=== PATIENT | female | born 1985 | race Caucasian/White ===

== ENCOUNTER 2024-02-22 11:41 | Inpatient (IN) | payer SELFPAY ==
[2024-02-22] VITALS (12 sets, daily range): BP systolic 91–121; BP diastolic 53–73; PULSE 58–77; RESP 15–16; TEMP 36.6–36.7; O2SAT 98; BMI 26.6
--- NOTE | 2024-02-22 11:45 | PM.OBGYHP ---
Providers/Chief Complaint Admitting Physician: Denis Ma MD Primary RUN BOAT OPERATOR: none Primary Care Provider: none HPI RUN BOAT OPERATOR History of Present Illness Nithya Frank is a 39 year old female patient had care with a ring attacher never had ultrasound during this states her EDC is February 29, 2024 presents to L&D c/o painful uterine contractions denies any complications during this did not have labs or 1-h glucola done h/o x three Present Details : 4 Para: 3 Labs Rubella: Immune RPR: Negative GBS: Unknown Medications/Allergies Home Medications Medication Instructions Recorded Confirmed Last Taken Type acetaminophen 325 mg tablet 650 mg PO Q4H PRN Pain 02/22/24 02/22/24 Unknown History (Tylenol) vits no.124-ferrous fum 1 tab PO DAILY 02/22/24 02/22/24 Unknown History 27 mg iron-folic acid 800 mcg tablet ( Vitamin) Allergies Allergy/AdvReac Type Severity Reaction Status Date / Time Sulfa (Sulfonamide Allergy ALGY-Rash Verified 02/22/24 14:06 Antibiotics) Vitals/I&O/Wt Last Vital Signs Temp 97.7 F 02/24/24 16:27 Pulse 89 02/24/24 16:27 Resp 16 02/24/24 16:27 BP 118/70 02/24/24 16:27 Pulse Ox 98 02/24/24 04:30 O2 Del Method Room Air 02/24/24 16:17 02/24/24 02/24/24 02/24/24 06:59 14:59 22:59 Intake Total 800 / 800 Balance 800 / 800 Physical Exam Narrative: VS normal patient in pain due to uterine contractions cervix: 8 cm / 0 station External monitor: heart tracing good variability, + accelerations Data 02/23/24 00:55 Results Labs OB ([facility]): Blood Type O Positive 02/22/24 Antibody Screen Negative 02/22/24 Hct 35.4 % (36-47) L 02/23/24 Hgb 11.80 g/dL (11.27-16.99) 02/23/24 Rho(D) Type Rh positive 02/22/24 Plt Count 158 10^3/cmm (157-399) 02/23/24 Hep Bs Antigen Non-reactive (Nonreactive) 02/22/24 Rubella IgG Antibody 1.5 IU/mL (0.0-10.0) 02/22/24 RPR Nonreactive (Nonreactive) 02/22/24 HIV 1&2 Ab & HIV 1 Ag Non-reactive (Non-Reactiv) 02/22/24 C.trachomatis RNA (TMA) Not detected (NOT DETECTED) 02/22/24 N.gonorrhoeae RNA (TMA) Not detected (NOT DETECTED) 02/22/24 Chlamydia/GC Comment See note 02/22/24 Urine Opiates Screen Positive ng/mL (Negative) H 02/22/24 Ur Barbiturates Screen Negative ng/mL (Negative) 02/22/24 Ur Phencyclidine Scrn Negative ng/mL (Negative) 02/22/24 Ur Amphetamines Screen Negative ng/mL (Negative) 02/22/24 U Benzodiazepines Scrn Negative ng/mL (Negative) 02/22/24 Urine Cocaine Screen Negative ng/mL (Negative) 02/22/24 U Marijuana (THC) Screen Negative ng/mL (Negative) 02/22/24 A&P Assessment and plan (1) Active labor: no care unknown gestational age presented in advanced cervical dilatation, active labor anticipate vaginal delivery (2) No care in current : Attestations Medical Necessity Statement*: patient presented to L&D with active labor Coding Level of Care Code Acute Code for Chg Fwd Diagnoses Active labor No care in current O09.30 Time Spent (min) 60
[2024-02-22] MEDS: oxytocin 30 UNIT/500 ML BAG 600 UNIT IV (12:04)
--- NOTE | 2024-02-22 12:10 | P.PN_ITS ---
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 Subjective: Interval history: DELIVERY NOTE patient with no care states she had no problems with this , was seeing a carton forming machine helper presented to L&D c/o painful uterine contractions no bleeding or fluid leakage On arrival, cervix was 7 cm / -2 station heart tracing good variability, + accelerations patient progressed to complete / +2 station , vigorous male infant cord gases and blood obtained normal placenta and cord no episiotomy / lacerations EBL: 300 cc no complications Labor: Station: +1 Amniotic Membrane Status: Ruptured Monitor Mode: Palpation Contraction Pattern: Regular Status: Category II Vitals/I&O/Wt Last Vital Signs Pulse 68 02/22/24 15:59 Resp 16 02/22/24 12:35 BP 116/59 02/22/24 15:59 O2 Del Method Room Air 02/22/24 13:47 02/22/24 02/22/24 02/22/24 06:59 14:59 22:59 Intake Total 500 / 500 Balance 500 / 500 Weight last 48 hrs Weight 155 lb Data 02/22/24 11:46 A&P Assessment and plan (1) Vaginal delivery: (2) No care in current : Attestations 2 Medical Necessity Statement*: patient presented with active labor, cervix at 7 cm Coding Level of Care Code Acute Code for Chg Fwd Diagnoses Vaginal delivery O80 No care in current O09.30 Time Spent (min) 60
--- NOTE | 2024-02-22 12:15 | PM.DELIVERY ---
Delivery Note: Date of delivery: February 22, 2024 Pre-delivery diagnoses: no care active labor fetus reassuring Post-delivery diagnoses: no care active labor fetus reassuring vaginal delivery Procedure: vaginal delivery Op report anesthesia: None Delivering Physician: Denis Ma MD Estimated blood loss (mL): 300 Findings: patient with no care states she had no problems with this , was seeing a coding machine operator presented to L&D c/o painful uterine contractions no bleeding or fluid leakage On arrival, cervix was 7 cm / -2 station heart tracing good variability, + accelerations patient progressed to complete / +2 station , vigorous male infant cord gases and blood obtained normal placenta and cord no episiotomy / lacerations EBL: 300 cc no complications Pre-Delivery Course: presented to L&D with cervix at 7 cm progressed rapidly to complete cervical dilatation Delivery: vaginal Post-Delivery Status: good A&P Assessment and plan (1) Vaginal delivery: (2) No care in current : Coding Level of Care Code Acute Code for Chg Fwd Diagnoses Vaginal delivery O80 No care in current O09.30 Time Spent (min) 60
[2024-02-22 12:28] LABS: HIV 1 & 2 Antigen Non-Reactive (Non-Reactiv)
[2024-02-22 12:29] LABS: HIV 1 & 2 Antibody Non-Reactive (Non-Reactiv); Hepatitis B Surface Antigen Non-Reactive (Nonreactive); Rubella IgG 1.5 IU/mL (0.0-10.0)
[2024-02-22 12:34] LABS: Rapid Plasma Reagin Syphilis Nonreactive (Nonreactive)
[2024-02-22 13:20] LABS: Amphetamines Screen Urine Negative (Negative); Barbiturates Screen Urine Negative (Negative); Benzodiazepines Screen Urine Negative (Negative); Cocaine Screen Urine Negative (Negative); Opiate Screen Urine Positive (Negative); PCP Screen Urine Negative (Negative); THC Screen Urine Negative (Negative)
[2024-02-22] MEDS: calcium carbonate 500 mg Chew Tablet 1000 MG PO (14:14)
[2024-02-22] MEDS: ibuprofen 800 mg tablet PO ×2 (14:14→20:09)
[2024-02-22 14:15] LABS: Basophils # 0.1 10^3/uL (0.0-0.1); Basophils % 0.3 %; Lymphocytes # 1.3 10^3/uL (0.8-4.8); Lymphocytes % 5.4 %; Mean Corpuscular HGB Conc 32.8 g/dL (30-55); Mean Corpuscular Hemoglobin 30.1 pg (27-33); Mean Corpuscular Volume 91.9 fl (85-98); Mean Platelet Volume 13.3 fL (7.4-10.4); Monocytes # 0.6 10^3/uL (0.2-0.9); Monocytes % 2.4 %; Neutrophils # 21.98 10^3/uL (1.8-7.7); Neutrophils % 90.8 %; Nucleated Red Blood Cells % 0 %; Platelet Count 198 10^3/cmm (157-399); Red Blood Count 4.68 10^6/uL (3.85-5.65); Red Cell Distribution Width 12.7 % (12.1-15.1)
[2024-02-22 14:32] LABS: Slide Review Slide Review Perform
--- NOTE | 2024-02-22 14:59 | PC.NURSE ---
Discussed urine drug screen being positive for opiates with pt. Again asked if she was taking any medications, over the counter or prescribed. Pt states only vitamins and tylenol. Pt then states that her meat cutter had prescribed her something to take the edge off, but she is unable to report the name of any medication, or when she had taken any medications. Mom informed baby will have urine and meconium drug testing. Mother encouraged again to obtain records from her meat cutter as soon as possible, understanding voiced.
--- NOTE | 2024-02-22 15:04 | PC.NURSE ---
Delivery Summary Pt arrived to L&D via ambulance at 1130, c/o contractions and urge to push. Pt taken immediately to OB-3. SVE 7-8cm/80%/-2. 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 Dr Ma notified at 1132 of situation and asked to come for delivery. Registration did not get pt into system until 1141. Dr Ma at bedside at 1145. Complete at 1151 and pushing initiated. at 1201. Placenta at 1204. After delivery mother questioned about testing and care, she states she had been seeing a multi township assessor, Madelyn Valencia but she was too far away to make it here for delivery so they decided to come to the hospital. Pt states she has a binder of her records at home, asked to bring said records to the floor. Pt denies having glucose testing or GBS testing. Pt denies any past medical or surgical history, or medication use other than vitamins and occasional tylenol.
--- NOTE | 2024-02-22 16:12 | PC.NURSE ---
pt ambulated to OB9 for post stay. oriented to room/call light. proud parent pack and feeding log discussed. fresh ice water provided.
[2024-02-22] MEDS: docusate sodium 100 mg Capsule PO (20:09)
[2024-02-23 01:05] LABS: Hematocrit 35.4 % (36-47); Mean Corpuscular HGB Conc 33.3 g/dL (30-55); Mean Corpuscular Hemoglobin 30.4 pg (27-33); Mean Corpuscular Volume 91.2 fl (85-98); Mean Platelet Volume 11.9 fL (7.4-10.4); Platelet Count 158 10^3/cmm (157-399); Red Blood Count 3.88 10^6/uL (3.85-5.65); Red Cell Distribution Width 12.6 % (12.1-15.1); White Blood Count 20.62 10^3/uL (3.29-11.43)
[2024-02-23 02:05] VITALS: BP 104/68; PULSE 72; RESP 16; TEMP 36.9; O2SAT 97
[2024-02-23 06:00] VITALS: BP 105/67; PULSE 68; RESP 16; TEMP 36.8; O2SAT 97
[2024-02-23 10:50] VITALS: BP 108/71; PULSE 70; RESP 17; TEMP 36.9; O2SAT 98
[2024-02-23] MEDS: ibuprofen 800 mg tablet PO ×2 (11:00→18:45)
[2024-02-23] MEDS: PRENATAL VIT NO.130/IRON/FOLIC 1 EACH TABLET PO (11:00)
[2024-02-23] MEDS: docusate sodium 100 mg Capsule PO ×2 (11:00→18:45)
--- NOTE | 2024-02-23 13:05 | P.PN_ITS ---
BUGGY MAN Subjective 2 Subjective: Interval history: no c/o no headaches, dizziness, nausea, abdominal pain, bleeding normal lochia eating, voiding, ambulating well Exam: afebrile, VS normal comfortable, awake, alert Abd: soft, nontender. fundus firm Ext: no edema; nontender A/P: PPD #1 doing well normal course Labor: Station: +1 Amniotic Membrane Status: Ruptured Monitor Mode: Palpation Contraction Pattern: Regular Status: Category II Vitals/I&O/Wt Last Vital Signs Temp 97.6 F 02/23/24 20:48 Pulse 96 02/23/24 20:48 Resp 16 02/23/24 20:48 BP 127/78 02/23/24 20:48 Pulse Ox 99 02/23/24 20:48 O2 Del Method Room Air 02/23/24 20:48 Weight last 48 hrs Weight 155 lb Data 02/23/24 00:55 A&P Assessment and plan (1) Vaginal delivery: Attestations 2 Medical Necessity Statement*: patient s/p vaginal delivery, for care Coding Level of Care Code Acute Code for Chg Fwd Diagnoses Vaginal delivery O80 Time Spent (min) 20
[2024-02-23 13:35] LABS: Chlamydia Trachomatis RNA TMA NOT DETECTED (NOT DETECTED); Neisseria Gonorrhoeae RNA, TMA NOT DETECTED (NOT DETECTED)
[2024-02-23 16:00] VITALS: BP 128/71; PULSE 86; RESP 18; TEMP 36.3; O2SAT 98
[2024-02-23 20:48] VITALS: BP 127/78; PULSE 96; RESP 16; TEMP 36.4; O2SAT 99
[2024-02-24] MEDS: ibuprofen 800 mg tablet PO ×3 (00:04→16:13)
[2024-02-24 04:30] VITALS: BP 112/73; PULSE 86; RESP 16; TEMP 36.6; O2SAT 98
[2024-02-24] MEDS: PRENATAL VIT NO.130/IRON/FOLIC 1 EACH TABLET PO (09:12)
[2024-02-24] MEDS: docusate sodium 100 mg Capsule PO (09:12)
[2024-02-24 09:15] VITALS: BP 116/70; PULSE 96; RESP 15; TEMP 36.4
[2024-02-24] MEDS: calcium carbonate 500 mg Chew Tablet 1000 MG PO (09:15)
--- NOTE | 2024-02-24 14:10 | PM.OBGYDC ---
Discharge Providers UNPAID INTERN Date of Admission: 02/22/24 11:41 Date of Discharge: 02/24/24 Attending Provider at Admission: Denis Ma MD Attending Provider at Discharge: Denis Ma MD Consults: none Primary Care Provider: none Diagnoses at Discharge Discharge Diagnosis (1) Active labor: Details from hospital stay: 39 y.o. patient had care with a granulating machine operator never had ultrasound during this states her EDC is February 29, 2024 presents to L&D c/o painful uterine contractions denies any complications during this did not have labs or 1-h glucola done h/o x three On arrival, cervix was 7 cm / -2 station heart tracing good variability, + accelerations patient progressed to complete / +2 station , vigorous male patient did well had no complications She was discharged home on the second day patient was instructed to return for care within the next two weeks either to the [facility] or a provider of her choice. Status: Acute (2) No care in current : Status: Acute Reason for Visit Reason for Visit: Abdominal pain Brief History: 39 y.o. patient had care with a granulating machine operator never had ultrasound during this states her EDC is February 29, 2024 presents to L&D c/o painful uterine contractions denies any complications during this did not have labs or 1-h glucola done h/o x three Hospital Course Hospital Course 39 y.o. patient had care with a granulating machine operator never had ultrasound during this states her EDC is February 29, 2024 presents to L&D c/o painful uterine contractions denies any complications during this did not have labs or 1-h glucola done h/o x three On arrival, cervix was 7 cm / -2 station heart tracing good variability, + accelerations patient progressed to complete / +2 station , vigorous male infant patient did well had no complications She was discharged home on the second day patient was instructed to return for care within the next two weeks either to the [facility] or a provider of her choice. Information Peripartum Data: Infant Delivery Method: Vaginal Laceration description: None Episiotomy description: None complications: none Physical Exam Narrative: afebrile, VS normal comfortable, awake, alert Abd: soft, nontender. fundus firm Ext: no edema; nontender Discharge Data Studies Completed and Pending Laboratory Results WBC 20.62 10^3/uL (3.29-11.43) H 02/23/24 00:55 RBC 3.88 10^6/uL (3.85-5.65) 02/23/24 00:55 Hgb 11.80 g/dL (11.27-16.99) 02/23/24 00:55 Hct 35.4 % (36-47) L 02/23/24 00:55 MCV 91.2 fl (85-98) 02/23/24 00:55 MCH 30.4 pg (27-33) 02/23/24 00:55 MCHC 33.3 g/dL (30-55) 02/23/24 00:55 RDW 12.6 % (12.1-15.1) 02/23/24 00:55 Plt Count 158 10^3/cmm (157-399) 02/23/24 00:55 MPV 11.9 fL (7.4-10.4) H 02/23/24 00:55 Neut % (Auto) 90.8 % 02/22/24 11:46 Lymph % (Auto) 5.4 % 02/22/24 11:46 [place] % (Auto) 2.4 % 02/22/24 11:46 Eos % (Auto) 0.0 % 02/22/24 11:46 Baso % (Auto) 0.3 % 02/22/24 11:46 Neut # (Auto) 21.98 10^3/uL (1.8-7.7) H 02/22/24 11:46 Lymph # (Auto) 1.3 10^3/uL (0.8-4.8) 02/22/24 11:46 [place] # (Auto) 0.6 10^3/uL (0.2-0.9) 02/22/24 11:46 Eos # (Auto) 0.0 10^3/uL (0.0-0.8) 02/22/24 11:46 Baso # (Auto) 0.1 10^3/uL (0.0-0.1) 02/22/24 11:46 Nucleated RBC % (auto) 0 % 02/22/24 11:46 Nucleated RBCs # 0.0 /100WBC 02/22/24 11:46 Urine Opiates Screen Positive ng/mL (Negative) H 02/22/24 12:09 Ur Barbiturates Screen Negative ng/mL (Negative) 02/22/24 12:09 Ur Phencyclidine Scrn Negative ng/mL (Negative) 02/22/24 12:09 Ur Amphetamines Screen Negative ng/mL (Negative) 02/22/24 12:09 U Benzodiazepines Scrn Negative ng/mL (Negative) 02/22/24 12:09 Urine Cocaine Screen Negative ng/mL (Negative) 02/22/24 12:09 U Marijuana (THC) Screen Negative ng/mL (Negative) 02/22/24 12:09 RPR Nonreactive (Nonreactive) 02/22/24 11:46 C.trachomatis RNA (TMA) Not detected (NOT DETECTED) 02/22/24 12:09 Chlamydia/GC Comment See note 02/22/24 12:09 Hep Bs Antigen Non-reactive (Nonreactive) 02/22/24 11:46 HIV 1&2 Ab & HIV 1 Ag Non-reactive (Non-Reactiv) 02/22/24 11:46 HIV 1&2 Antibody Non-reactive (Non-Reactiv) 02/22/24 11:46 N.gonorrhoeae RNA (TMA) Not detected (NOT DETECTED) 02/22/24 12:09 Rubella IgG Antibody 1.5 IU/mL (0.0-10.0) 02/22/24 11:46 Blood Type O Positive 02/22/24 11:46 Rho(D) Type Rh positive 02/22/24 11:46 Antibody Screen Negative 02/22/24 11:46 Procedures Performed vaginal delivery Vitals Last Vital Signs Temp 97.7 F 02/24/24 16:27 Pulse 89 02/24/24 16:27 Resp 16 02/24/24 16:27 BP 118/70 02/24/24 16:27 Pulse Ox 98 02/24/24 04:30 O2 Del Method Room Air 02/24/24 16:17 Results Labs OB ([facility]): Blood Type O Positive 02/22/24 Antibody Screen Negative 02/22/24 Hct 35.4 % (36-47) L 02/23/24 Hgb 11.80 g/dL (11.27-16.99) 02/23/24 Rho(D) Type Rh positive 02/22/24 Plt Count 158 10^3/cmm (157-399) 02/23/24 Hep Bs Antigen Non-reactive (Nonreactive) 02/22/24 Rubella IgG Antibody 1.5 IU/mL (0.0-10.0) 02/22/24 RPR Nonreactive (Nonreactive) 02/22/24 HIV 1&2 Ab & HIV 1 Ag Non-reactive (Non-Reactiv) 02/22/24 C.trachomatis RNA (TMA) Not detected (NOT DETECTED) 02/22/24 N.gonorrhoeae RNA (TMA) Not detected (NOT DETECTED) 02/22/24 Chlamydia/GC Comment See note 02/22/24 Urine Opiates Screen Positive ng/mL (Negative) H 02/22/24 Ur Barbiturates Screen Negative ng/mL (Negative) 02/22/24 Ur Phencyclidine Scrn Negative ng/mL (Negative) 02/22/24 Ur Amphetamines Screen Negative ng/mL (Negative) 02/22/24 U Benzodiazepines Scrn Negative ng/mL (Negative) 02/22/24 Urine Cocaine Screen Negative ng/mL (Negative) 02/22/24 U Marijuana (THC) Screen Negative ng/mL (Negative) 02/22/24 Discharge Plan Discharge Patient Disposition: Home Condition: Stable Prescriptions: Continued Vitamin 27 mg iron- 800 mcg Tablet 1 tab PO DAILY acetaminophen [Tylenol] 325 mg Tablet 650 mg PO Q4H PRN (Reason: Pain) Discharge Orders: Discharge Order (Routine); Ordered 02/24/24 Ordered By: Denis Ma Referrals: Densi Ma MD [Physician] - 03/08/24 2:00 pm Discharge Diet: Usual diet Discharge Activity: Increase activity as tolerated Patient Instructions: Depression (DC), Opioid Safety (DC), Preeclampsia and Eclampsia After Delivery (GEN), Hemorrhage (DC), OB Discharge Report, OB Food/Drug Interaction Guide, Opioid Safety, OB Home Care, OB Vaginal Deliveries - [facility], Abnormal Bleeding Activity Restrictions/Additional Instructions: followup with a health care provider in two weeks Discharge Attestations UNPAID INTERN Time Spent in Discharge Care*: less than 30 min Coding Level of Care Code Acute Code for Chg Fwd Diagnoses Active labor No care in current O09.30 Time Spent (min) 20
[2024-02-24 16:17] VITALS: BP 118/70; PULSE 89; RESP 16; TEMP 36.5
[2024-02-24 16:27] VITALS: BP 118/70; PULSE 89; RESP 16; TEMP 36.5
== END 2024-02-24 16:30 | disposition home or self-care (01) | DRG 807 ==
PROVIDERS: Admitting Provider Obstetrics & Gynecology; Visit Provider Obstetrics & Gynecology
DX: O80 Encounter for full-term uncomplicated delivery (principal); Z37.0 Single live birth; Z3A.39 39 weeks gestation of pregnancy
CPT/HCPCS: 36415; 59409; 80306; 85025; 85027; 86592; 86762; 86850; 86900; 87340; 87491; 87591; 87806; J2590

== ENCOUNTER → 2024-04-12 13:13 | Outpatient (BNVA) | payer MEDICAID, SELFPAY | PROVIDERS: Visit Provider Obstetrics & Gynecology | DX: Z01.419 Encounter for gynecological examination (general) (routine) without abnormal findings (principal) | CPT/HCPCS: 87624 ==

== ENCOUNTER 2024-04-27 08:00 | Outpatient (CLI) | payer MEDICAID, SELFPAY ==
--- NOTE | 2024-04-27 | MM_ITS ---
WS: [id number] Bilateral screening 3D tomosynthesis digital mammogram, 04/27/2024 8:09 AM Clinical Data: ANNUAL SCREENING Comparison: None. Findings: No spiculated masses or clustered calcifications are seen. There are no secondary signs of carcinoma . There is dystrophic calcification in the upper outer aspect of the left breast. MM/MM scr BI tomosynthesis [id number] Impression: Negative bilateral mammogram with no prior exam for review. Recommend annual screening mammograms. BIRADS: 2 - Benign FOLLOW UP: 1 Year Follow-up DENSITY: The breasts are extremely dense, which lowers the sensitivity of mammo graphy. The CAD maturity checker was used
== END 2024-04-27 08:01 | disposition home or self-care (01) ==
PROVIDERS: PCP Family Medicine; Visit Provider Obstetrics & Gynecology
DX: Z12.31 Encounter for screening mammogram for malignant neoplasm of breast (principal); R92.1 Mammographic calcification found on diagnostic imaging of breast
CPT/HCPCS: 77063; 77067

== ENCOUNTER 2024-08-15 05:54 | Day surgery (SDC) | payer MEDICAID, SELFPAY ==
[2024-08-15] VITALS (11 sets, daily range): BP systolic 102–118; BP diastolic 52–77; PULSE 64–96; RESP 13–25; TEMP 36.2–36.9; O2SAT 97–99; BMI 23.9
--- NOTE | 2024-08-15 00:46 | W.PM.OPSFHP ---
Same Day Surgery H&P Indication for Procedure/HPI DATE OF PROCEDURE: August 15, 2024 CHIEF COMPLAINT/INDICATIONFOR SURGICAL PROCEDURE: Desires permanent sterilization PREOP DIAGNOSIS: Desires permanent sterilization PLANNED PROCEDURE: Operation Date: 08/15/24 07:00 Proposed Procedures p Laparoscopic bilateral partial salpingectomy 10945, Z30.2(Bilateral) - Denis Ma MD 39 y.o. A1 Wants permanent sterilization now scheduled for laparoscopic bilateral salpingectomy Medications/Allergies* Home Medications ?Medication ?Instructions ?Recorded ?Confirmed ?Type acetaminophen 325 mg tablet 650 mg PO Q4H PRN Pain 02/22/24 08/14/24 History (Tylenol) vits no.124-ferrous fum 1 tab PO DAILY 02/22/24 08/14/24 History 27 mg iron-folic acid 800 mcg tablet ( Vitamin) buspirone 5 mg tablet 5 mg PO BID 08/14/24 08/14/24 History Allergies/Adverse Reactions Allergy/AdvReac Type Severity Reaction Status Date / Time aspartame Allergy ADR-Abdominal Verified 05/31/24 11:13 Pain Sulfa (Sulfonamide Allergy ALGY-Rash Verified 05/31/24 11:13 Antibiotics) Pertinent History/Comorbid Conditions* Medical History (Updated 05/07/24 @ 13:51 by Denis Ma MD) No care in current Vaginal delivery Social History Smoking and tobacco/nicotine status: current every day tobacco/nicotine user Pertinent Exam Findings alert, oriented x 3, clear to auscultation bilaterally and regular rate & rhythm Pertinent Data Pap 12-4-24 NILM, negative HPV Recommendations Surgery/Procedure today Coding Level of Care Code Acute Code for Chg Fwd
[2024-08-15] MEDS: sodium chloride 0.9% 1,000 ML 30 ML IV (06:30)
--- NOTE | 2024-08-15 06:38 | ANES.PREANE2 ---
Pre-Anesthetic Assessment Height/Weight: Height 5 ft 3 in Weight 135 lb Temp Pulse Resp BP Pulse Ox O2 Del Method 97.1 F L 66 18 110/61 98 Room Air 08/15/24 06:34 08/15/24 06:34 08/15/24 06:34 08/15/24 06:34 08/15/24 06:34 08/15/24 06:34 Preop Diagnosis: desires permanent sterilization Operation Date: 08/15/24 07:00 Proposed Procedures p Laparoscopic bilateral partial salpingectomy 35874, Z30.2(Bilateral) - Denis Ma MD Was Beta Pieter taken within 24 hours: N/A Was Clonidine taken within 24 hours: N/A Last intake: Intake Last Liquid Date 08/14/24 Last Liquid Time 00:00 Last Solid Date 08/14/24 Last Solid Time 19:00 Social No alcohol and No tobacco Quit smoking a few months ago Exam alert, oriented x 3, clear to auscultation bilaterally and regular rate & rhythm Airway Submandibular: within normal limits Cervical ROM: within normal limits Mallampati: Class II Dentition: full Anesthetic Plan ASA status: 2 Anesthesia: General Other: No prior issues with anesthesia NPO since yesterday evening Patient stopped smoking a few months ago, no home inhaler use Denies any cardiac issues Patient states that she struggled with GERD during but has been okay lately Waiting on urine METs greater than 4 Plan for GETA Medications/Allergies Home Medications ?Medication ?Instructions ?Recorded ?Confirmed ?Last Taken ?Type acetaminophen 325 mg tablet 650 mg PO Q4H PRN Pain 02/22/24 08/14/24 05/29/24 History (Tylenol) vits no.124-ferrous fum 1 tab PO DAILY 02/22/24 08/14/24 05/31/24 History 27 mg iron-folic acid 800 mcg tablet ( Vitamin) norethindrone (contraceptive) 0.35 0.35 mg PO DAILY #84 tabs 03/13/24 08/14/24 08/14/24 Rx mg tablet buspirone 5 mg tablet 5 mg PO BID 08/14/24 08/14/24 08/14/24 History Allergies Allergy/AdvReac Type Severity Reaction Status Date / Time aspartame Allergy ADR-Abdominal Verified 05/31/24 11:13 Pain Sulfa (Sulfonamide Allergy ALGY-Rash Verified 05/31/24 11:13 Antibiotics) [facility] Anesthesia Medical History (Updated 05/07/24 @ 13:51 by Denis Ma MD) No care in current Vaginal delivery Social History Smoking and tobacco/nicotine status: current every day tobacco/nicotine user Data Anesthesia Cardiac Studies: No Data to Display
[2024-08-15 06:51] LABS: OR HCG Qualitative Urine Negative (Negative)
--- NOTE | 2024-08-15 06:51 | W.PM.OPSUD ---
Surgery/Procedure H&P Update DATE OF PROCEDURE: August 15, 2024 DATE H&P PERFORMED: 08/15/24 H&P UPDATE INFORMATION: I have reviewed H&P completed within last 30 days, I have examined patient prior to procedure and No changes to prior documentation PREOP DIAGNOSIS: desires permanent sterilization PLANNED PROCEDURE: Operation Date: 08/15/24 07:00 Proposed Procedures p Laparoscopic bilateral partial salpingectomy 26472, Z30.2(Bilateral) - Denis Ma MD
--- NOTE | 2024-08-15 07:50 | P.OP_ITS ---
Operative Report Date of procedure: August 15, 2024 Pre-op diagnosis: desires permanent sterilization Post-op diagnosis: same Post-op findings: normal uterus, tubes, and ovaries Procedure done: laparoscopic bilateral salpingectomy Implants: none Specimens removed/disposition: bilateral fallopian tube segments Surgeon: Denis Ma MD Anesthesia: General Estimated blood loss (mL): 5 Complications: none Findings: normal uterus, tubes, and ovaries Condition: stable Disposition: PACU Brief History: 39 y.o. desires permanent sterilization Procedure: Informed consent was obtained. The patient was taken to the OR and placed on the table. General endotracheal anesthesia was induced. The abdomen was then prepped and draped in the usual fashion. A 5 mm subumbilical skin incision was made. A 5 mm trocar with sheath was then inserted into the peritoneal cavity under direct visualization with the laparoscope. After confirming intraperitoneal position, pneumoperitoneum was achieved. Two separate 5 mm incisions were made in the right and left mid- quadrants. 5 mm trocars with sheaths were then inserted into the peritoneal cavity under direct visualization with the laparoscope. The right fallopian tube was then identified to its fimbrial end. Starting at the fimbrial end, the mesosalpinx was then coagulated and cut using the Ligasure. The right fallopian tube was excised and removed via one of the ports. This was sent to pathology. There was no bleeding seen. Similarly, the left fallopian tube was identified to its fimbrial end. The left fallopian tube was excised and removed, sent to pathology. There was no bleeding. All instruments were then removed from the peritoneal cavity after the pn eumoperitoneum was allowed to escape. The skin incisions were closed using 3-O chromic in subcuticular fashion. Dermabond was applied. The patient was then placed supine and awakened, taken the the PACU in good condition. Postop condition: stable EBL: 5 cc Complications: none Sponge, needles, and instruments counts correct x two
--- NOTE | 2024-08-15 09:00 | ANE.PACU2 ---
Inpatient post-anesthesia follow up: Airway intact: Yes Vital signs: Temperature 98.0 F Pulse Rate 64 Respiratory Rate 17 Blood Pressure 103/52 Pulse Oximetry 97 Oxygen Delivery Me thod Room Air Oxygen Flow Rate Fraction of Inspir ed Oxygen Hydration adequate: Yes Nausea and vomiting: No Pain level: 1 Mental status: Baseline
== END 2024-08-15 09:00 | disposition home or self-care (01) ==
PROVIDERS: PCP Family Medicine; Visit Provider Obstetrics & Gynecology
PROC: (CPT 58661; principal; 2024-08-15 07:00)
DX: Z30.2 Encounter for sterilization (principal); F17.200 Nicotine dependence, unspecified, uncomplicated
CPT/HCPCS: 58661; 81025; 88302; J1100; J2250; J2405; J2704; J3010; J3490; J7030; J9999

== ENCOUNTER 2024-09-06 10:14 | Outpatient (CLI) | payer MEDICAID, SELFPAY ==
--- NOTE | 2024-09-06 10:23 | XR_ITS ---
WS: [id number] Cervical spine, 5 views including both obliques, 09/06/2024 Clinical Data: CHRONIC NECK PAIN FOR GREATER THAN 3 MONTHS Comparison: None. Findings: No compression fractures are seen. The disc heights are normal. There is no prevertebral soft tissue swelling. The obliques show no foraminal encroachment. The odontoid is unremarkable. The soft tissues of the neck and the lung apices are normal. XR/XR cervical spine 4-5V [id number] Impression: Negative cervical spine with negative oblique images.
== END 2024-09-06 10:15 | disposition home or self-care (01) ==
PROVIDERS: PCP Family Medicine; Visit Provider Family Medicine
DX: M54.2 Cervicalgia (principal)
CPT/HCPCS: 72050

== ENCOUNTER 2025-01-31 15:19 | Outpatient (CLI) | payer MEDICAID, SELFPAY ==
--- NOTE | 2025-01-31 15:22 | MR_ITS ---
WS: [id number] MRI CERVICAL SPINE NONCONTRAST HISTORY: NUMBNESS TINGLING, R ARM/CHRONIC NECK PAIN COMPARISON: None available. Technique: Multiplanar, multisequence noncontrast imaging of the cervical spine. Normal cervical alignment with no compression fracture or significant disc space narrowing. Signal within the cervical cord is normal. Visualized posterior fossa is unremarkable. Mild ectopia of the cerebellar tonsils. C2-C3: C3-C4: Normal. C4-C5: Normal. C5-C6: Small central disc protrusion. Mild facet arthritis. C6-C7: Minimal facet arthritis. C7-T1: Normal. Paraspinal soft tissue are normal. MR/MR cervical spin wo con* [id number] IMPRESSION: 1. No high-grade central or foraminal stenosis. 2. Small central disc protrusion at C5-6.
--- NOTE | 2025-01-31 15:34 | MR_ITS ---
WS: [id number] MRI BRAIN WITHOUT CONTRAST HISTORY: MEMORY DEFICIT/CHANGES IN VISION COMPARISON: None available. TECHNIQUE: Diffusion imaging, multiplanar T1, T2 and FLAIR imaging obtained. No evidence for acute infarct or hemorrhage. Hudson-white matter differentiation is normal. No remote or acute infarcts or volume loss. Ventricles and extra-axial spaces are normal. No inferior displacement of cerebellar tonsils. The sella turcica and pituitary gland are unremarkable. Visualization of the orbit and globe is limited without dedicated imaging but the orbits and optic nerves appear symmetric. Dural venous sinuses and [place] demonstrate no abnormality on this unenhanced studies. Paranasal sinuses: Very small amount of fluid in the RIGHT sphenoid sinus. Mastoid air cells: Normal. Calvarium and scalp: Intact. MR/MR head wo con* [id number] IMPRESSION: 1. Unremarkable noncontrast MRI brain. 2. No signal abnormalities noted on the FLAIR sequence in the periventricular distribution to suggest demyelinating disease.
== END 2025-01-31 15:20 | disposition home or self-care (01) ==
LOC: RAD 15:20
PROVIDERS: PCP Family Medicine; Visit Provider Family Medicine
DX: R20.0 Anesthesia of skin (principal); M50.222 Other cervical disc displacement at C5-C6 level; R20.2 Paresthesia of skin; M79.601 Pain in right arm; R41.3 Other amnesia; H53.9 Unspecified visual disturbance; J34.89 Other specified disorders of nose and nasal sinuses; D10.4 Benign neoplasm of tonsil; M47.812 Spondylosis without myelopathy or radiculopathy, cervical region
CPT/HCPCS: 70551; 72141

== ENCOUNTER 2025-02-13 07:42 | Emergency (ER) | payer MEDICAID, SELFPAY ==
--- OUTSIDE RECORDS SUMMARY | 2012-02-26 06:20 | XMS_ITS | Continuity of Care Document ---
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 Name Role Phone Unavailable Unavailable Unavailable Allergies, Adverse Reactions, Alerts Substance Reaction Status Criticality Sulfa (Sulfonamide Antibiotics) Active No Information Medications Medication Instructions Dosage Effective Dates (start - stop) Status Comments Mirena 20 mcg/24 hr Intrauterine Device insert 1 by Intrauterine route 1 - Active Lot # [id number] E x 15 ibuprofen 600 mg Tab take 1 tablet (600MG) by oral route 4 times every day with food 600 MG - Active Plus 27 mg-1 mg Tab take 1 tablet by oral route every day - No Longer Active Procedures Procedure Date URINE TEST Levonorgestrel iu contracept INSERT INTRAUTERINE DEVICE CARE AFTER DELIVERY (Post- Care) O POSTOP FOLLOW-UP VISIT OBSTETRICAL CARE Return OB FLU VACCINE NO PRESERV 3 & > IMMUNIZATION ADMIN Return OB OB US, LIMITED, FETUS(S) Return OB Return OB Return OB CULTURE SCREEN ONLY CULTURE TYPE, NUCLEIC ACID Return OB Return OB Venipuncture - [facility] HEMOGLOBIN GLUCOSE TEST Return OB OB US >/= 14 WKS, SNGL FETUS URINE CULTURE/COLONY COUNT 4NEW - Vaginal Delivery Venipuncture - [facility] OBSTETRIC PANEL HIV-1/HIV-2, SINGLE ASSAY CHYLMD TRACH, DNA, AMP PROBE N.GONORRHOEAE, DNA, AMP PROB CYTOPATH C/V AUTO FLUID REDO Advance Directives Directive Yes / No Effective Date File Name Resuscitation Not Answered N/A N/A Life Support Not Answered N/A N/A Intubation Not Answered N/A N/A Antibiotics Not Answered N/A N/A IV Fluid Support Not Answered N/A N/A Tube Feed Not Answered N/A N/A Other Directive N/A N/A WARNING:The information contained in this section is historical and is provided for information only and does not constitute a legal document or any assurance that the information is still accurate. Please verify the information with the magana of the legal document before using it for clinical purposes. Encounters Encounter Description Practice Location Reason(s) For Visit Diagnoses Date Provider Providers Copied on Encounter [facility], [address], [place], [id number] , [place] tel: [phone] [facility] visit (chief complaint)I UD insertion (chief complaint) examination or test, unconfirmedINSERT ION OF IUDRoutine follow-up 2 No Information [facility], [address], [place], [id number] , [place] tel: [phone] [facility] wants to return to work (chief complaint) No Information 2 No Information [facility], [address], [place], [id number] , [place] tel: [phone] [facility] IP No Information 2 [address]. [address] [facility] [address], [facility] [place], [address], [place]. tel:[phone] Referring Provider: Vivian Reed, [address] [place], [address]. tel:[phone] [facility], [address], [place], [id number] , [place] tel: [phone] [facility] (chief complaint) Influenza Vaccine 2 No Information [facility], [address], [place], [id number] , [place] tel: [phone] [facility] (chief complaint) No Information 2 No Information [facility], [address], [place], [id number] , [place] tel: [phone] [facility] (chief complaint) No Information 2 No Information [facility], [address], [place], [id number] , [place] tel: [phone] [facility] (chief complaint) No Information 2 No Information [facility], [address], [place], [id number] , [place] tel: [phone] [facility] (chief complaint) No Information 2 No Information [facility], [address], [place], [id number] , [place] tel: [phone] [facility] (chief complaint) No Information 2 No Information [facility], [address], [place], [id number] , [place] tel: [phone] [facility] (chief complaint) No Information 2 No Information [facility], [address], [place], [id number] , [place] tel: [phone] [facility] (chief complaint) No Information 2 No Information [facility], [address], [place], [id number] , [place] tel: [phone] [facility] (chief complaint) Gynecological Examination 2 No Information Family History Family Member Type Diagnosis Age At Onset Mother Problem (finding) Obesity Grandparent Problem (finding) osteoporosis Mother Problem (finding) osteoporosis Grandparent Problem (finding) stroke Father Problem (finding) Thyroid disease Grandparent Problem (finding) Diabetes mellitus Mother Problem (finding) stroke Immunizations Vaccine Date Status Comments flu (split) preservative tika e, 3 yrs or older administered Source: New Immuniza tion Record Payers Payer name Insurance type Covered libertarian ID Authoriza tion(s) Medicaid Tay [id number] Social History Type Description Quantity Date Captured Comments Alcohol Use Details Unknown Caffeine Use Details Unknown Tobacco Use Status No Information Smoking Status No Information Sex Female Vital Signs Date / Time: Height Weight BMI Pulse Rate Blood Pressure Temperature Respiratory Rate Body Surface Area Head Circumference Head Circ. Percentile Wt./Dennis. Percentile BMI percentile Pulse Ox Inhaled Ox 11:25 AM 64.00 in 130.00 lbs 22.3 1 kg/m eter (2) 90/52 mm[Hg] Chief Complaint And Reason For Visit From encounter dated '02/26/2012 11:20'. visit (chief complaint) IUD insertion (chief complaint) Reason For Referral Reason For Referral No Information Plan Of Treatment Date Type Action Status Referral Ordered: Hemoglobin Appointment date/timeframe: 12/04/2011 ordered History Of Present Illness Encounter Date Complaint History Of Prese nt Illness No Information Functional Status Date Functional Assessmen t No Information Instructions Date Instruction Additional Infor mation influenza vaccine Early Screen testing discussed cystic fibrosis testing discusse d quad screen testing discussed amniocentesis discussed childbirth classes / hospital fa cilities Welcome Baby book New OB packet seat belt use use of any medicatio ns (including supplements, vitamins, herbs, OTC drugs) illicit / recreational drugs alcohol tobacco (ask, advise, assess, as sist and arrange) travel anticipated course of c are domestic violence screening HIV and other routine t ests environmental / work hazards influenza vaccine indications for ultrasound physical activity / exercise sexual activity toxoplasmosis precautions (cats / raw meat) nutrition and weight gain vasile white, special diet Assessments Type Assessment Date No Information Patient Care Teams Name Effective Dates (start - stop) Status Members No Information
[2025-02-13 07:48] VITALS: BP 129/76; PULSE 90; RESP 16; O2SAT 97; BMI 25.8
--- OUTSIDE RECORDS SUMMARY | 2025-02-13 07:49 | XMS_ITS | Patient Health Record ---
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 Name Role Phone YOJANA GOLDMAN Unavailable [phone] Allergies Allergen (clinical drug ingredient) Drug/Non Drug Allergy documented on EMR Reaction Allergy Type Onset Date Status Substance with sulfonamide structure and antibacterial mechanism of action (substance) Sulfa Antibiotics nausea/vomiting Drug Allergy Active Reason For Referral No Information Medications Medication SIG (Take, Route, Frequency, Duration) Notes Start Date End Date Status Mirena (52 MG) 20 MCG/DAY as directed Intrauterine Unknown Wellbutrin SR 150 MG 1 tablet in the mor brooks Orally Once a day for 30 day(s) Unknown Chantix Unknown BuSpar Unknown Social History Tobacco Use: Social History Observation Description Date Details (start date - stop date) Current Smoker NA - NA Tobacco Status: Question Answer Notes Patient is a current every day smoker Problems No Known Problems Plan Of Treatment No Information Insurance Providers Payer Name Payer Address Payer Phone Subscriber Number Group Number Insured Name Patient Relationship to Insured Coverage Start Date Coverage End Date [place] [address] [address] [place], [place] [id number] AYANAESTHER Self - patient is the insured 2 Medical (General) History Medical History History ICD Code allergies anxiety depression Surgical History Surgery Date(Month/Year)
--- NOTE | 2025-02-13 08:11 | W.ED.NECK ---
HPI - Neck Pain/Injury General: Chief Complaint: Neck Pain/Injury Stated Complaint: bilat shoulder, neck, and back pain Time Seen by Provider: 02/13/25 07:48 History of Present Illness: 40-year-old female who presents emergency room complaining of bilateral neck shoulder and upper back pain. She has been taking a lot of ibuprofen for this. This has been going on for several months that she has been on muscle relaxers prednisone and anti-inflammatories has been seen by her primary care doctor had an MRI of her head and of her neck. She states so far nothing has seemed to help it very much. Patient claims progressively worsening pain no history of any trauma to the neck. She reports she was told the MRI of the head and neck were done here and were negative. She previously had an injury several years ago to a shoulder that turned out to be more like a tendinitis it was treated conservatively and resolved she never required any surgery. Related Data Home Medications ?Medication ?Instructions ?Recorded ?Confirmed acetaminophen 325 mg tablet 650 mg PO Q4H PRN Pain 02/22/24 01/02/25 (Tylenol) vits no.124-ferrous fum 1 tab PO DAILY 02/22/24 01/02/25 27 mg iron-folic acid 800 mcg tablet ( Vitamin) buspirone 5 mg tablet 5 mg PO BID 08/14/24 01/02/25 Previous Rx's ?Medication ?Instructions ?Recorded tramadol 50 mg tablet 50 mg PO BID PRN pain #14 tabs 08/15/24 diclofenac sodium 3 % topical gel 1 applic topical BID PRN pain #100 01/02/25 (Solaraze) grams methocarbamol 500 mg tablet 500 mg PO TID 10 days #30 tabs 01/02/25 prednisone 20 mg tablet 60 mg (3 x 20 mg) PO DAILY 5 days 01/02/25 #15 tabs prednisone 20 mg tablet 20 mg PO TID #15 tabs 02/13/25 pregabalin 75 mg capsule (Lyrica) 75 mg PO BID #60 caps 02/13/25 Allergies Allergy/AdvReac Type Severity Reaction Status Date / Time aspartame Allergy ADR-Abdominal Verified 08/24/24 07:41 Pain Sulfa (Sulfonamide Allergy ALGY-Rash Verified 08/24/24 07:41 Antibiotics) Review of Systems Const: Denies: fever(s) or chills Card: Denies: chest pain Resp: Denies: dyspnea GI: Denies: abdominal pain : Denies: dysuria, urinary frequency or urinary urgency Musc: Denies: neck pain or back pain Skin/Breast: Denies: rash PFSH ED PFSH: Medical History No pertinent past medical history No care in current Vaginal delivery Surgical History H/O tubal ligation Social History Smoking and tobacco/nicotine status: never used tobacco/nicotine Physical Exam Const: COMMON NORMALS: no acute distress GENERAL APPEARANCE: cooperative and comfortable ORIENTATION/CONSCIOUSNESS: Yes awake, Yes oriented to person, Yes oriented to place and Yes oriented to time HENMT: COMMON NORMALS: normocephalic, atraumatic and hearing grossly normal bilaterally HEAD & SCALP: normocephalic and atraumatic Resp: COMMON NORMALS: normal respiratory effort, No retractions, No use of accessory muscles and clear to auscultation bilaterally AUSCULTATION: clear to auscultation bilaterally Cardio: COMMON NORMALS: regular rate, regular rhythm and No murmurs present (Cardio) RATE: regular rate RHYTHM: regular rhythm Extremity: COMMON NORMALS: normal to inspection, capillary refill normal, no clubbing, cyanosis or edema, no calf tenderness and no pedal edema OTHER: Weakness in the right arm compared to the left echo tech strength at the elbow and at the shoulder. No muscle wasting. Neuro: SENSORIUM/ORIENTATION: Yes oriented to person, Yes oriented to place and Yes oriented to time Skin: COMMON NORMALS: no rashes or lesions noted GENERAL SKIN EXAM: no rashes or lesions noted Course Vital Signs: Vital signs: Vital Signs Pulse Rate 68 02/13/25 09:21 Respiratory Rate 16 02/13/25 08:44 Blood Pressure 109/71 02/13/25 09:21 Pulse Oximetry 98 02/13/25 09:21 Oxygen Delivery Me thod Room Air 02/13/25 07:48 MDM - Neck Pain/Injury Medical Decision Making MRI of the head and neck from previous were reviewed. Patient has cervical radicular like symptoms she had no stenosis either central or foraminal on her MRI. No recent trauma no previous surgeries. Given that she is not having any trauma and there is no stenosis on her MRI next evaluation should be of a nerve conduction study. Discussed with her that this is not something we can arrange to do today in the emergency room. We did get some pain relief with medications given will start on a prednisone taper also started her on Lyrica we will set her up for an outpatient nerve conduction study and refer her to neurology. Medical Records I reviewed the patient's medical records. Lab Data I reviewed the patient's lab results. All radiology interpretation(s) finalized by discharge Discharge Plan Discharge Patient Disposition: Home Clinical Impression: Cervical radiculopathy Condition: Stable Prescriptions: New prednisone 20 mg tablet 20 mg PO TID Qty: 15 0RF Rx Instructions: 1 p.o. 3 times daily x3 days, 1 p.o. twice daily x2 days, 1 p.o. daily x2 days pregabalin [Lyrica] 75 mg capsule 75 mg PO BID Qty: 60 0RF No Action diclofenac sodium [Solaraze] 3 % gel 1 applic topical BID PRN (Reason: pain) Qty: 100 0RF prednisone 20 mg tablet 60 mg PO DAILY 5 Days Qty: 15 0RF methocarbamol 500 mg tablet 500 mg PO TID 10 Days Qty: 30 0RF Vitamin 27 mg iron- 800 mcg Tablet 1 tab PO DAILY acetaminophen [Tylenol] 325 mg Tablet 650 mg PO Q4H PRN (Reason: Pain) buspirone 5 mg tablet 5 mg PO BID tramadol 50 mg tablet 50 mg PO BID PRN (Reason: pain) Qty: 14 0RF Discharge Orders: Discharge ED (Routine); Ordered 02/13/25 Ordered By: Josué Thurston Referrals: Aniya Gutiérrez DO [Primary Care Provider, INSURANCE CLAIMS SUPERVISOR] Discharge Diet: Usual diet Discharge Activity: Limit activity as instructed Patient Instructions: Opioid Safety, Pain Management, Patient Portal & [place] Instructions Activity Restrictions/Additional Instructions: [facility] [place] [facility]. It is very important that you follow up as instructed or that you return to the Emergency Department should you have concerns or if your condition changes or worsens in any way. Emergency department visits are focused on emergent conditions, in some cases you may require further evaluation on an outpatient basis. You were seen in the emergency room with neck and arm pain. Your MRI and of the head and neck done previously were reviewed. No significant findings noted on those. Recommend that you have outpatient nerve conduction studies and follow-up with neurology. Will start you on a prednisone taper as well as Lyrica 1 tablet twice a day follow-up with Dr. Gutiérrez within the next 7 to 10 days. Case management make arrangements for the neurology consultation and nerve testing. (Please note that included in your discharge packet is information concerning opioid safety and pain management. This information is given to all patients were discharged from the ER regardless of their discharge diagnosis or the medicines they usually take or are prescribed.) Print Language: Korean Coding Level of Care Code ED Plodding Machine Operator for Ashlee Velazquez
[2025-02-13 08:44] VITALS: RESP 16
[2025-02-13] MEDS: morphine 4 mg/mL SDV 1 mL IVP (08:44)
[2025-02-13 09:21] VITALS: BP 109/71; PULSE 68; O2SAT 98
--- NOTE | 2025-02-14 09:54 | DCPLANNER ---
Message sent to Neurology
== END 2025-02-13 09:23 | disposition home or self-care (01) ==
PROVIDERS: Emergency Provider Family Medicine; PCP Family Medicine
DX: M54.12 Radiculopathy, cervical region (principal)
CPT/HCPCS: 96372; 96374; 96375; 99284; J1100; J1885; J2270

== ENCOUNTER → 2025-02-26 09:00 | Outpatient (BNVA) | payer MEDICAID, SELFPAY | PROVIDERS: PCP Family Medicine; Visit Provider Orthopaedic Surgery | DX: M25.511 Pain in right shoulder (principal); G89.29 Other chronic pain | CPT/HCPCS: 73030 ==

== ENCOUNTER 2025-03-15 09:25 | Outpatient (CLI) | payer MEDICAID, SELFPAY ==
--- NOTE | 2025-03-15 09:30 | MR_ITS ---
WS: [id number] MRI RIGHT SHOULDER HISTORY: M25.511 - Pain in right shoulder COMPARISON: 02/26/2025 TECHNIQUE: Multiplanar sequences of the shoulder joint are submitted. Moderate AC joint arthritis. Narrowing of the AC joint with diffuse synovial thickening. Small amount of fluid in the subacromial and subdeltoid bursa. Small erosions along the articular margins. Moderate subacromial impingement by an osteophyte measuring 5 x 2 mm. No os acromion. Normal position of the biceps tendon. Tendinopathy in the distal supraspinatus tendon. Fraying along the articular and bursal surfaces. Linear intermediate signal in the distal supraspinatus tendon. Signal is more likely tendinopathy than a tear. There is no fluid-filled gap or retraction. Subscapularis and infraspinatus tendons are intact. No muscle atrophy or edema. No labral tear. No joint effusion. Normal position of the humeral head. No increased signal or thickening of the axillary pouch. MR/MR shoulder RT wo con* [id number] IMPRESSION: 1. Moderate AC joint arthropathy. 2. Moderate subacromial impingement by an osteophyte measuring 5 x 2 mm. 3. Tendinopathy in the distal supraspinatus tendon but no tears. 4. Articular and bursal surface fraying of the supraspinatus tendon.
== END 2025-03-15 09:26 | disposition home or self-care (01) ==
LOC: RAD 09:26
PROVIDERS: PCP Family Medicine; Visit Provider Orthopaedic Surgery
DX: M25.511 Pain in right shoulder (principal); G89.29 Other chronic pain
CPT/HCPCS: 73221